=== PATIENT | female | born 1990 | race African-American/Black ===

== ENCOUNTER 2024-05-30 23:47 | Emergency (ER) | payer OTHER ==
[~2024-05-30] VITALS: Ht 170.2 cm; Wt 100.0 kg
[2024-05-30] MEDS ORDERED: ONDANSETRON HCL 4MG/2ML INJ IV STA (23:53)
[2024-05-31] VITALS: O2SAT 100
[2024-05-31] MEDS: SODIUM CHLORIDE 0.9% 1,000 ML IV ONE
[2024-05-31 00:23] LABS: DIFFERENTIAL COMMENT 0; EOSINOPHILS % 0.8 % (0.0-5.0); HEMATOCRIT. 35.8 % (36.0-48.0); HEMOGLOBIN. 12.2 g/dL (12.0-16.0); LYMPHOCYTES % 55.5 % (20.0-50.0); MEAN CORPUSCULAR HEMOGLOBIN 27.1 pg (28.0-32.0); MEAN CORPUSCULAR HGB CONC 34.1 g/dL (31.0-37.0); MEAN CORPUSCULAR VOLUME 79.7 fL (81.0-99.0); MEAN PLATELET VOLUME 7.8 fl (7.4-10.4); MONOCYTES % 10.8 % (2.0-8.0); NEUTROPHILS % 31.9 % (40.0-76.0); PLATELET 402 x1000/uL (130-400); RED BLOOD CELL COUNT 4.49 mill/uL (4.2-5.4); RED CELL DISTRIBUTION WIDTH 15.3 % (11.6-14.6); WHITE BLOOD COUNT 12.6 x1000/uL (4.5-11.0)
[2024-05-31 00:25] LABS: CHLORIDE 105 mEq/L (98-107); POTASSIUM 2.9 mEq/L (3.5-5.1); SODIUM 137 mEq/L (136-145)
[2024-05-31 00:26] LABS: CALCIUM 9.5 mg/dL (8.7-10.4); CARBON DIOXIDE 18 mEq/L (21-32)
[2024-05-31] MEDS: ONDANSETRON HCL 4MG/2ML INJ IV NR (00:30)
[2024-05-31 00:31] LABS: CREATININE 1.2 mg/dL (0.6-1.0); GLUCOSE 159 mg/dL (70-105); UREA NITROGEN BLOOD 11 mg/dL (9-23)
[2024-05-31 00:36] LABS: ETHANOL BLOOD < 10 mg/dL (<10)
[2024-05-31 00:38] LABS: HCG SCREEN NEGATIVE
[2024-05-31] MEDS: POTASSIUM CHLORIDE 20MEQ/PACKET PO ONE (02:03)
[2024-05-31 04:18] LABS: CLARITY URINE CLEAR (CLEAR); COLOR URINE YELLOW (YELLOW); GLUCOSE URINE NEGATIVE (NEGATIVE); KETONES URINE NEGATIVE (NEGATIVE); LEUKOCYTE ESTERASE URINE NEGATIVE (NEGATIVE); NITRITE URINE NEGATIVE (NEGATIVE); OCCULT BLOOD URINE NEGATIVE (NEGATIVE); PH URINE 5.5 (4.5-8.0); PROTEIN URINE NEGATIVE (NEGATIVE); SPECIFIC GRAVITY URINE 1.012 (1.005-1.030); UROBILINOGEN URINE 0.2 E.U./dL (0.2-1.0)
[2024-05-31 04:25] LABS: *AMPHETAMINES SCREEN URINE NEGATIVE (NEGATIVE); *BARBITURATES SCREEN URINE NEGATIVE (NEGATIVE); *BENZODIAZEPINES SCREEN URINE NEGATIVE (NEGATIVE); *COCAINE SCREEN URINE NEGATIVE (NEGATIVE); CANNABINOID URINE SCREEN PRESUMPTIVE POSITIVE (NEGATIVE); ECSTASY MDMA SCREEN URINE NEGATIVE (NEGATIVE); METHADONE URINE SCREEN NEGATIVE (NEGATIVE); OPIATES URINE SCREEN NEGATIVE (NEGATIVE); PHENCYCLIDINE URINE SCREEN NEGATIVE (NEGATIVE)
[2024-05-31] MEDS ORDERED: POTA-204 MT (05:09)
[2024-05-31] MEDS ORDERED: ONDA4TAB50 MT (05:09)
[2024-05-31 05:25] VITALS: BP 151/73; PULSE 72; RESP 16; TEMP 98.2
== END 2024-05-31 06:07 | disposition home or self-care (01) ==
LOC: ER 05-31
DX: T40.711A Poisoning by cannabis, accidental (unintentional), initial encounter (principal); E87.6 Hypokalemia; Z00.00 Encounter for general adult medical examination without abnormal findings; Y92.9 Unspecified place or not applicable
CPT/HCPCS: 80305; 80048; 81003; 80320; 84703; 85025; 36415; 96361; 96374; 99285; J7030; G0480